=== PATIENT | male | born 1975 | race Caucasian/White ===

== ENCOUNTER → 2016-12-11 | Outpatient (CLI) | payer OTHER | LOC: CIMAGING 18:23 | PROVIDERS: ATTEND Family Medicine | DX: S89.92XA Unspecified injury of left lower leg, initial encounter (principal); M25.562 Pain in left knee; Z87.828 Personal history of other (healed) physical injury and trauma; Z98.890 Other specified postprocedural states; X50.9XXA Other and unspecified overexertion or strenuous movements or postures, initial encounter; Y99.0 Civilian activity done for income or pay | CPT/HCPCS: 73562-PO ==